=== PATIENT | male | born 2000 | race Caucasian/White ===

== ENCOUNTER 2018-10-15 18:15 | Emergency (ER) | payer OTHER ==
[2018-10-15] MEDS: LIDOCAINE 1% (MPF) 5 ML VIAL INFIL (19:55)
[2018-10-15] MEDS: HYDROCODONE/APAP (5/325) TAB PO ×2 (19:55→20:01)
== END 2018-10-15 21:09 | disposition home or self-care (01) ==
LOC: FTE 18:15
DX: L02.211 Cutaneous abscess of abdominal wall (principal)
CPT/HCPCS: 10060; 99283-25

== ENCOUNTER 2018-10-21 11:05 | Emergency (ER) | payer OTHER ==
[2018-10-21] MEDS: LIDOCAINE 4% CR TOP (12:22)
[2018-10-21] MEDS: LIDOCAINE 1% (MDV) 20 ML INJ SC (12:22)
== END 2018-10-21 13:59 | disposition home or self-care (01) ==
LOC: FTE 11:05
DX: L02.211 Cutaneous abscess of abdominal wall (principal)
CPT/HCPCS: 10060; 99282-25

== ENCOUNTER 2018-10-23 11:22 | Emergency (ER) | payer OTHER | END 2018-10-23 12:08 | disposition home or self-care (01) | LOC: FTE 11:22 | DX: Z48.01 Encounter for change or removal of surgical wound dressing (principal); F17.210 Nicotine dependence, cigarettes, uncomplicated | CPT/HCPCS: 99281; Z7502 ==